=== PATIENT | female | born 1985 | race Caucasian/White ===

== ENCOUNTER → 2017-01-23 | Day surgery (SDC) | payer OTHER ==
[~2017-01-23] VITALS: Ht 177.8 cm; Wt 72.6 kg
[~2017-01-23] MED LIST: ACET50TA PO; ACETAMINOPHEN TAB 650MG DOSE (2X325MG) As Ordered ONE; ACETAMINOPHEN TAB 650MG DOSE (2X325MG) PO ONE; BUPIVACAINE HCL 0.25% 30 ML VIAL As Ordered ONE; BUPIVACAINE/EPIN 0.25% 30 ML VIAL As Ordered ONE; COLA100C3 PO; DOCUSATE SODIUM 100 MG CAP PO SCH; IBUP-1114 PO; KETOROLAC 30 MG/ML VIAL (J1885) IV PRN; KETOROLAC 60 MG/2 ML VIAL (J1885) As Ordered ONE; LIDOCAINE 2% INJ 100 MG/5 ML SDV (FOR ANES.) As Ordered ONE; LR 1,000 ML IV SCH; MIDAZOLAM INJ 2 MG/2 ML VIAL (J2250) As Ordered ONE; MORPHINE 2 MG/ML 1ML SYRINGE IV PRN; NORA0.35 PO; ONDANSETRON 4MG/2ML VIAL (J2405) As Ordered ONE; ONDANSETRON 4MG/2ML VIAL (J2405) IV PRN; PERCOCET 5MG/325MG TAB PO PRN; PRENTAB9 PO; PROPOFOL 200 MG/20 ML VIAL As Ordered ONE; ROCURONIUM BROMIDE 50 MG/5 ML VIAL As Ordered ONE; SCOPOLAMINE 1.5 MG TRANSDERMAL As Ordered ONE; SCOPOLAMINE 1.5 MG TRANSDERMAL TOP ONE; SUGAMMADEX SODIUM 500 MG/5 ML VIAL (BRIDION) As Ordered ONE; dexameTHASONE 4 MG/ML 1ML VIAL (J1100) As Ordered ONE; fentaNYL 100 MCG/2 ML INJECTION (J3010) IV PRN; fentaNYL 250 MCG/5 ML INJECTION (J3010) As Ordered ONE
[2017-01-23 11:08] LABS: BASO % 0.3 % (0.0-1.0); EOS # 0.2 K/mm3 (0.0-0.50); EOS % 3.1 % (0.0-3.0); LARGE UNSTAINED CELL # 0.1 K/mm3 (0.0-0.4); LARGE UNSTAINED CELL % 1.8 % (0.0-4.0); LYMPH # 2.5 K/mm3 (1.5-4.5); LYMPH % 33.1 % (24.0-44.0); MEAN CORPUSCULAR HEMOGLOBIN 29.5 pg (27.0-33.0); MEAN CORPUSCULAR HGB CONC 34.5 g/dl (32.0-36.5); MEAN CORPUSCULAR VOLUME 85.7 fl (80.0-96.0); MONO # 0.3 K/mm3 (0.0-0.8); MONO % 3.7 % (0.0-5.0); NEUTROPHILS # 4.4 K/mm3 (1.8-7.7); PLATELET COUNT, AUTOMATED 399 k/mm3 (150-450); RED CELL DISTRIBUTION WIDTH 12.9 % (11.5-14.5); WHITE BLOOD COUNT 7.6 K/mm3 (4.0-10.0)
[2017-01-23 11:15] LABS: CONTROL LINE HCG INT CTR LINE PRESENT
[2017-01-23 15:30] VITALS: BP 109/65
--- NOTE | 2017-01-24 06:56 | RO ---
DATE OF PROCEDURE: 01/23/2017 PREPROCEDURE DIAGNOSIS: POSTPROCEDURE DIAGNOSIS: PROCEDURE: SURGEON: Ashish Morris MD CAR DISTRIBUTOR: Gilbert Ya MD ANESTHESIA: Dr. Young, General. ESTIMATED BLOOD LOSS: 10 mL. URINE OUTPUT: 25 mL. IV FLUID: 1000 mL isotonic fluid. Patient is a 31-year-old G4, P4-0-0-3 who presents this day for satisfied parity and desire for permanent sterilization. Patient underwent multiple counseling sessions in regards to risks/benefits/alternatives/indications to permanent sterilization and elected to proceed. Also discussed with spouse who again agrees that patient nor spouse desire further fertility options. Patient elects for bilateral salpingectomy for permanent sterilization. The risks/benefits/alternatives/indications were reviewed with patient and informed consent was obtained. The patient was taken to the operating room where general anesthesia was obtained without difficulty. Patient then underwent exam under anesthesia demonstrating a sized mobile uterus with no adnexal masses or fullness. Patient was then prepped and draped in normal sterile fashion with a Mcdonald catheter placed. After a time out was performed, a sterile speculum was placed in the patient's vagina. Cervix was visualized. Single tooth tenaculum was used to grasp the anterior lip of the cervix and a [address]anks dilator was three-quarters way advanced through the cervix and taped to the single Steri-Strip to the single tooth tenaculum for uterine manipulation. Sterile speculum was then removed. After gloves were exchanged, attention was turned to the patient's abdomen where 5 mm infraumbilical incision was made in routine fashion. Under direct visualization, a trocar and camera was advanced into the abdomen. Appropriate placement was demonstrated by gas having a pressure of less than 5 mmHg. After appropriate intraperitoneal placement was assured, gas was turned on to a maximum pressure of 15 mmHg. Initial evaluation of the abdomen demonstrated no injury with entry, as well as a 360 degree evaluation demonstrating normal liver, intestines, bilateral ovaries, bilateral fallopian tubes and normal appearing uterus. No endometrial implants or other abnormalities appreciated. At this point, two additional 5 mm trocars both in the left and right lower quadrant were placed in routine fashion under direct visualization without complication. A total of 12 mL of 0.25% Marcaine plain were utilized throughout the procedure for local anesthetic. After further identifying the fallopian tube and re-assessing from previous evaluation, the left fallopian tube was then grasped and using the LigaSure device, was cross-clamped and electrodissected to the cornual. The breadth of the fallopian tube was then crossed and electrocoagulated with the LigaSure device. The left fallopian tube was then removed through the left trocar without complication. In an identical fashion, the entire procedure was repeated on the right side without further complication. Bilateral fallopian tubes were removed without incident and noted hemostasis at the surgical site. Gas was turned off and the belly was desufflated in routine fashion. The trocars were removed under direct visualization. The trocar sites were then closed with #4-0 Monocryl in a subcuticular fashion without complications and covered with Dermabond. Attention was then turned to the patient's vagina where the instruments were removed including single tooth tenaculum, Hanks dilator and speculum. No further bleeding was noted. Vaginal sweep demonstrated no retained foreign objects. Instruments, needle count, lap/sponge counts correct times two. Patient was taken to the recovery room in stable condition.
== END | disposition home or self-care (01) ==
LOC: M SDC 10:27
PROVIDERS: ATTEND Student in an Organized Health Care Education/Training Program
DX: Z30.2 Encounter for sterilization (principal); Z88.0 Allergy status to penicillin
CPT/HCPCS: 36415; 58661; 84703; 85025; 86850; 86870; 86900; 86901; 88302; J1100; J1885; J2250; J2405; J3010